=== PATIENT | male | born 1960 | race Caucasian/White ===

== ENCOUNTER 2022-11-24 17:14 | Emergency (ER) | payer BC, OTHER, SELFPAY ==
[2022-11-24 17:17] VITALS: BP 154/80; PULSE 90; RESP 18; TEMP 36.8; O2SAT 97
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
[2022-11-24] MEDS: Ibuprofen 200 MG TAB 400 MG PO (18:14)
[2022-11-24] MEDS: Acetaminophen 500 MG TAB 1000 MG PO (18:14)
[2022-11-24] MEDS: Lidocaine/Epinephri/Tetracaine Topical Gel 3 ML TP (18:15)
[2022-11-24] MEDS: Tetanus & Diphtheria Tox,ADULT 0.5 ML VIAL IM (18:23)
--- NOTE | 2022-11-24 21:55 | NUR.NOTE ---
referral faxed to ENT to f/u in 2 days for a through and through chin laceration.Nursing Note:
== END 2022-11-24 19:42 | disposition home or self-care (01) ==
LOC: ER 19:43
PROVIDERS: Emergency Provider Emergency Medicine
DX: S01.511A Laceration without foreign body of lip, initial encounter (principal); V19.3XXA Pedal cyclist (driver) (passenger) injured in unspecified nontraffic accident, initial encounter
CPT/HCPCS: 12014; 90471